=== PATIENT | male | born 1995 | race African-American/Black ===

== ENCOUNTER 2022-08-29 11:34 | Emergency (ER) | payer SELFPAY ==
[2022-08-29 13:46] LABS: C. TRACHOMATIS BY PCR DETECTED; N. GONORRHOEAE BY PCR NOT DETECTED
== END 2022-08-29 13:57 | disposition home or self-care (01) ==
LOC: MW.ED 11:34
DX: Z11.3 Encounter for screening for infections with a predominantly sexual mode of transmission (principal); A74.9 Chlamydial infection, unspecified
CPT/HCPCS: 81003; 87491; 87591; 99283